=== PATIENT | male | born 1965 | race Caucasian/White ===

== ENCOUNTER → 2019-12-07 11:46 | Outpatient (CLI) | payer OTHER, SELFPAY ==
[2019-12-08 10:33] LABS: COVID19 Sendout Not Detected (Not Detect)
== END ==
PROVIDERS: Visit Provider Physician Assistant
DX: Z11.59 Encounter for screening for other viral diseases (principal)
CPT/HCPCS: 87635

== ENCOUNTER 2019-12-10 09:04 | Day surgery (SDC) | payer OTHER, SELFPAY ==
[2019-12-10 09:17] VITALS: BP 139/87; PULSE 81; RESP 18; TEMP 36.4; BMI 22.1
--- NOTE | 2019-12-10 09:28 | PM.HP.1 ---
History of Present Illness History of Present Illness Date Patient Seen: 12/10/19 Time Patient Seen: 09:29 Chief complaint: [id number] Narrative: The patient is here for his 1st colonoscopy for screening purposes. He is 54. No GI tract symptoms. No family history. Patient History Medical History (Updated 12/10/19 @ 09:30 by Sridhar Bennett MD) Asthma (Acute) Constipation (Acute) Encounter for screening for malignant neoplasm of colon (Acute) GERD (gastroesophageal reflux disease) (Acute) Hayfever (Acute) History of lower leg fracture (Acute ~2014) History of tibial fracture (Acute) Psoriasis (Acute) Family & Social History Social History: household members none Tobacco & Substance use: Tobacco type cigarettes Smoking Status Former smoker alcohol intake current alcohol intake frequency 0-2 drinks per day Substance Use Type does not use Meds Home Medications and Allergies Home Medications Medication Instructions Recorded Confirmed Type No Known Home Medications 12/10/19 12/10/19 History Allergies Allergy/AdvReac Type Severity Reaction Status Date / Time No Known Drug Allergies Allergy Verified 12/10/19 09:14 Review of Systems Review of Systems Narrative: No active asthma symptoms at this time. Heartburn occasionally ROS: Yes All systems reviewed with the patient and are negative except as otherwise documented Exam Vital Signs (past 8 hours): - 12/10/19 09:17 Temperature 97.6 F Pulse Rate 81 Respiratory Rate 18 Blood Pressure 139/87 Oxygen Delivery Method Room Air Narrative Exam Narrative: Cooperative no apparent distress. Pupils are small equal. Nonicteric sclera. Lungs are clear to auscultation. No rales or rhonchi. Heart regular rate and rhythm without murmur gallop. Abdomen is soft scaphoid nontender though he is ticklish. Patient is alert and oriented x3. Assessment & Plan Assessment & Plan narrative: Patient here for a screening colonoscopy. I have discussed the procedure and the rationale with the patient including risks of bleeding, perforation which would necessitate a major operation, failure to find remove all lesions and the potential to tattoo. They appeared to understand and wished to proceed.
[2019-12-10] MEDS: LACTATED RINGERS 1,000 ML 200 ML IV (09:29)
--- NOTE | 2019-12-10 09:32 | PM.PREOP ---
Pre-operative Note COVID-19 COVID-19 status: Negative Result date/Date tested (Pos, Neg/Pending): 12/07/19 Interval Note History & Physical reviewed/Exam performed by Physician: Yes Changes to H&P: No ASA Class (for procedural sedation): I
[2019-12-10] MEDS: fentaNYL 250 MCG/5 ML INJ IV (10:15)
[2019-12-10] MEDS: MIDAZOLAM 5 MG/5 ML VIAL IV (10:16)
[2019-12-10 10:19] VITALS: BP 115/74; PULSE 97; RESP 16; TEMP 36.9; O2SAT 94
--- NOTE | 2019-12-10 10:20 | PM.OP.ENDO ---
Operative Date/Time/Diagnoses Date of procedure: 12/10/19 Time of procedure: 10:20 Pre-op diagnosis: Screening examination. Patient is 54. This is his 1st exam. Post-op diagnosis: same (Extensive bowens diverticulosis most heavily concentrated in the sigmoid colon. Tortuous sigmoid colon.) Procedure & Clinicians Study performed: Colonoscopy Same procedure as scheduled: Yes Indications: Screening for colon cancer Surgeon: Sridhar Bennett Procedure Notes SCOAP/Timeout: Perform Procedure in detail: The patient was placed in the left lateral decubitus position and underwent IV sedation directed by the surgeon consisting of fentanyl and Versed. Digital exam was unremarkable. His prostate is flat.. The scope was inserted and advanced through the rectum into the sigmoid, descending, transverse, and ascending colon. Patient was noted to have extensive sigmoid diverticulosis with tortuosity. There were a few scattered diverticuli noted throughout the colon including the right colon.. The cecum was reached identified by the ileocecal valve and the appendiceal opening. The scope was gradually brought out. No Polyps were found. The scope ultimately was retroflexed in the rectum. The appearance was normal. The scope was removed and the patient tolerated the procedure well. Prep was adequate. Scope withdrawal time: That is 8 minutes Sedation minutes: 24 Findings: diverticulosis (Pancolonic most heavily concentrated in the sigmoid colon) Specimen(s): none sent Post-procedure Recommendations: Colonscopy in 10 years Follow up: as needed Disposition: PACU
[2019-12-10 10:24] VITALS: BP 130/71; PULSE 84; RESP 16; O2SAT 95
[2019-12-10 10:28] VITALS: BP 122/82; PULSE 84; RESP 16; TEMP 36.8; O2SAT 95
[2019-12-10 10:43] VITALS: BP 118/75; PULSE 70; RESP 18; O2SAT 94
== END 2019-12-10 10:52 | disposition home or self-care (01) ==
PROVIDERS: Referring Provider Specialist; Visit Provider Specialist
PROC: 0DJD8ZZ Inspection of Lower Intestinal Tract, Via Natural or Artificial Opening Endoscopic (ICD-10-PCS; CPT 45378; principal; 2019-12-10 09:45)
DX: Z12.11 Encounter for screening for malignant neoplasm of colon (principal); J45.909 Unspecified asthma, uncomplicated; K21.9 Gastro-esophageal reflux disease without esophagitis; K57.30 Diverticulosis of large intestine without perforation or abscess without bleeding
CPT/HCPCS: 45378; 99152; J2250; J3010

== ENCOUNTER → 2020-04-09 15:52 | Outpatient (CLI) | payer OTHER, SELFPAY ==
[2020-04-10 06:09] LABS: RPR Screen Non Reactive (Non Reactive)
[2020-04-10 15:49] LABS: Hepatitis B Surface Antigen NEGATIVE s/c (NEGATIVE)
[2020-04-10 16:07] LABS: HIV 1 & 2 Ab/Ag 4th Gen Combo NEGATIVE (NEGATIVE); Hep C Virus Ab w/Reflex Quant NEGATIVE s/c (NEGATIVE)
== END ==
PROVIDERS: Referring Provider Physician Assistant; Visit Provider Physician Assistant
DX: Z11.3 Encounter for screening for infections with a predominantly sexual mode of transmission (principal)
CPT/HCPCS: 36415; 86592; 86803; 87340; 87389; 87491; 87591

== ENCOUNTER → 2024-04-30 10:28 | Outpatient (CLI) | payer BC, SELFPAY ==
[2024-04-30 18:50] LABS: Hematocrit 43.6 % (41-53); Hemoglobin 14.7 g/dL (13.5-17.5); Mean Corpuscular HGB Conc 33.7 % (30-36); Mean Corpuscular Hemoglobin 33.4 PG (26-34); Mean Corpuscular Volume 99.3 fL (80-100); Platelet Count 279 X10^3/uL (150-400); Red Blood Cell Count 4.39 X10^6/uL (4.5-5.9); Red Cell Distribution Width 13.3 % (11.6-14.8); White Blood Cell Count 5.6 X10^3/uL (4.5-11.0)
[2024-04-30 19:01] LABS: Alanine Aminotransferase 36 IU/L (<50); Albumin 4.7 g/dL (3.5-5.0); Albumin Globulin Ratio 1.6 (1.0-2.8); Alkaline Phosphatase 62 U/L (38-126); Aspartate Aminotransferase 54 IU/L (17-59); BUN Creatinine Ratio 15.1 (6-22); Bilirubin Total 0.7 mg/dL (0.2-1.3); Blood Urea Nitrogen 11 mg/dL (9-20); Calcium 9.6 mg/dL (8.4-10.2); Carbon Dioxide 27 mmol/L (22-32); Chloride 102 mmol/L (98-107); Cholesterol 234 mg/dL (140-199); Estimated Glomerular Filt Rate > 60 mL/min (>60); Glucose 113 mg/dL (70-100); HEMOLYSIS < 15 (0-50); Potassium 4.5 mmol/L (3.4-5.1); Sodium 136 mmol/L (137-145); Total Protein 7.7 g/dL (6.3-8.2); Triglycerides 84 mg/dL (35-150)
[2024-04-30 19:26] LABS: HDL Cholesterol 135 mg/dL (40-60); LDL Cholesterol Calculated 82 mg/dL (<100)
[2024-04-30 19:32] LABS: Prostate Specific Antigen Scrn 4.07 ng/mL (0.1-4.0); TSH w/ Reflex to FT4 3.84 uIU/mL (0.47-4.68)
== END ==
PROVIDERS: PCP Physician Assistant Medical; Visit Provider Physician Assistant Medical
DX: Z12.5 Encounter for screening for malignant neoplasm of prostate (principal); Z13.6 Encounter for screening for cardiovascular disorders; Z13.0 Encounter for screening for diseases of the blood and blood-forming organs and certain disorders involving the immune mechanism; Z13.29 Encounter for screening for other suspected endocrine disorder; Z13.1 Encounter for screening for diabetes mellitus
CPT/HCPCS: 80053; 80061; 84443; 85027; G0103

== ENCOUNTER → 2024-05-07 12:19 | Outpatient (CLI) | payer BC, SELFPAY | PROVIDERS: PCP Physician Assistant Medical; Referring Provider Physician Assistant Medical; Visit Provider Physician Assistant Medical | DX: R97.20 Elevated prostate specific antigen [PSA] (principal) | CPT/HCPCS: 87086 ==

== ENCOUNTER → 2024-05-29 11:31 | Outpatient (CLI) | payer BC, SELFPAY | PROVIDERS: PCP Physician Assistant Medical; Visit Provider Urology | DX: R39.9 Unspecified symptoms and signs involving the genitourinary system (principal) | CPT/HCPCS: 87086 ==

== ENCOUNTER → 2024-08-08 13:14 | Outpatient (CLI) | payer BC, SELFPAY ==
[2024-08-08 21:43] LABS: Prostate Specific Antigen 2.31 ng/mL (0.10-4.00)
== END ==
PROVIDERS: PCP Physician Assistant Medical; Visit Provider Urology
DX: R97.20 Elevated prostate specific antigen [PSA] (principal)
CPT/HCPCS: 84153

== ENCOUNTER → 2024-10-28 08:20 | Outpatient (CLI) | payer SELFPAY ==
[2024-10-28 08:47] LABS: Urine Drug scr, USCG NIDA See Separate Report
== END ==
LOC: LAB 08:21
PROVIDERS: PCP Physician Assistant Medical
DX: Z02.1 Encounter for pre-employment examination (principal)
CPT/HCPCS: 81099